=== PATIENT | male | born 1975 | race African-American/Black ===

== ENCOUNTER → 2018-04-22 | Day surgery (SDC) | payer OTHER ==
[~2018-04-22] MED LIST: LIDOCAINE 1% INJ-PF (10 MG/ML) 30 ML SDV ONE
--- NOTE | 2018-04-22 08:51 | RADIOLOGY REPORT (SQ) ---
EXAM DESCRIPTION: ARTHRO SHOULDER INJECTION; FLUORO/NEEDLE PLACEMENT COMPLETED DATE/TIME: 04/22/2018 8:14 am REASON FOR STUDY: INSTABILITY OF RIGHT SHOULDER COMPARISON: None. FLUOROSCOPY TIME: 0.8 minutes 2 digital radiographic images saved to PACS. LIMITATIONS: None. PROCEDURE: Procedure, risks, benefits and alternatives explained to patient who then gave written co nsent. The posterior right shoulder was marked and a time out was called for correct procedure verifi cation. Posterior entry site marked using fluoroscopic guidance. Shoulder prepped and draped using sterile technique. Local anesthesia achieved using 4 mL of 1% lidocaine injection. 22 gauge spinal needle introduced into the joint space under direct fluoroscopic visualization. Non-ionic contrast in stilled to confirm intra-articular position. Dilute gadolinium solution then injected. Needle remove d and entry site covered with sterile bandage. No immediate complications noted. TECHNIQUE: Digital images acquired during fluoroscopy and stored on PACS. Patient immediately take n to the MR suite for additional imaging. INJECTION LOCATION: Posterior right glenohumeral joint CONTRAST TYPE AND AMOUNT: 1 mL of Isovue-300 was injected to confirm intra-articular needle placement followed by 12 mL of dilute Prohance/Saline mixture. IMPRESSION: SUCCESSFUL NEEDLE PLACEMENT AND INJECTION FOR RIGHT SHOULDER MR ARTHROGRAM USING POSTERI OR APPROACH. COMMENT: Quality ID 145: Final reports for procedures using fluoroscopy that document radiation exp osure indices, or exposure time and number of fluorographic images (if radiation exposure indices are not available) TECHNICAL DOCUMENTATION: JOB ID: [id number] [employer]- All Rights Reserved Reading location - IP/workstation name: [email or web address]
--- NOTE | 2018-04-22 08:51 | RADIOLOGY REPORT (SQ) ---
EXAM DESCRIPTION: ARTHRO SHOULDER INJECTION; FLUORO/NEEDLE PLACEMENT COMPLETED DATE/TIME: 04/22/2018 8:14 am REASON FOR STUDY: INSTABILITY OF RIGHT SHOULDER COMPARISON: None. FLUOROSCOPY TIME: 0.8 minutes 2 digital radiographic images saved to PACS. LIMITATIONS: None. PROCEDURE: Procedure, risks, benefits and alternatives explained to patient who then gave written co nsent. The posterior right shoulder was marked and a time out was called for correct procedure verifi cation. Posterior entry site marked using fluoroscopic guidance. Shoulder prepped and draped using sterile technique. Local anesthesia achieved using 4 mL of 1% lidocaine injection. 22 gauge spinal needle introduced into the joint space under direct fluoroscopic visualization. Non-ionic contrast in stilled to confirm intra-articular position. Dilute gadolinium solution then injected. Needle remove d and entry site covered with sterile bandage. No immediate complications noted. TECHNIQUE: Digital images acquired during fluoroscopy and stored on PACS. Patient immediately take n to the MR suite for additional imaging. INJECTION LOCATION: Posterior right glenohumeral joint CONTRAST TYPE AND AMOUNT: 1 mL of Isovue-300 was injected to confirm intra-articular needle placement followed by 12 mL of dilute Prohance/Saline mixture. IMPRESSION: SUCCESSFUL NEEDLE PLACEMENT AND INJECTION FOR RIGHT SHOULDER MR ARTHROGRAM USING POSTERI OR APPROACH. COMMENT: Quality ID 145: Final reports for procedures using fluoroscopy that document radiation exp osure indices, or exposure time and number of fluorographic images (if radiation exposure indices are not available) TECHNICAL DOCUMENTATION: JOB ID: [id number] [employer]- All Rights Reserved Reading location - IP/workstation name: [email or web address]
--- NOTE | 2018-04-22 09:37 | RADIOLOGY REPORT (SQ) ---
EXAM DESCRIPTION: MRI RT UPPER JOINT WITH COMPLETED DATE/TIME: 04/22/2018 8:55 am REASON FOR STUDY: INSTABILITY OF RIGHT SHOULDER COMPARISON: None. TECHNIQUE: Right shoulder images acquired and stored on PACS. Oblique coronal, oblique sagittal, and axial imaging to include fat sensitive sequences as T1, water sensitive sequences as FST2/STIR, and contrast sensitive sequences as FST1. LIMITATIONS: None. FINDINGS: JOINT DISTENTION: Adequate. No loose bodies appreciated. BONE MARROW AND CORTEX: Normal. AC JOINT: Relatively intact, without significant degenerative overgrowth. No widening. Type 1 acrom ion without spurs. Slight lateral down slope. Subacromial space looks relatively maintained. GLENOHUMERAL JOINT: No subluxation or dislocation. Mild subchondral cyst formation in the inferior g lenoid suggests overlying chondromalacia. No definable full-thickness lesions are measured. General ized chondral thinning over the upper humeral head. No significant osteophytes. ROTATOR CUFF: Bursal surface fraying along the supraspinatus diffusely. This is consistent with part ial tear, less than 50%. No full-thickness breech. No cuff muscle atrophy. LABRUM AND BICEPS LABRAL COMPLEX: Extensive abnormal signal in the superior labrum. Relatively macer ated appearance, probably at least type 3 lesion. Biceps tendon looks relatively intact. INFERIOR LABRAL COMPLEX: Generally intact. No evidence of capsular disruption, abnormal thickening o r labral tear. ADJACENT SOFT TISSUES: No axillary adenopathy. No regional mass. OTHER: No other significant finding. IMPRESSION: 1. Partial thickness cuff tear, as described. No full-thickness breech. 2. Extensive SLAP tear. Biceps looks relatively intact. 3. Glenohumeral arthropathy. TECHNICAL DOCUMENTATION: JOB ID: [id number] [employer]- All Rights Reserved Reading location - IP/workstation name: [email or web address]
== END ==
LOC: RAD 07:24
PROVIDERS: ATTEND Physician Assistant
DX: M75.111 Incomplete rotator cuff tear or rupture of right shoulder, not specified as traumatic (principal); S43.431A Superior glenoid labrum lesion of right shoulder, initial encounter; X58.XXXA Exposure to other specified factors, initial encounter
CPT/HCPCS: 73222; 77002; 23350; A9576; J3490